=== PATIENT | male | born 1960 | race Caucasian/White ===

== ENCOUNTER 2018-02-03 10:38 | Observation (INO) ==
--- NOTE | 2018-02-03 10:51 | Emergency Department Note ---
Disposition Clinical Impression: Chest pain Disposition: Admitted As Inpatient Condition: Good Referrals: Andria Britton, ELECTRONICS TECHNICIAN APPRENTICE [Primary Care Provider] - Time of Disposition: 13:01 General Adult HPI - General Stated complaint: cp, headache, dizzy Time Seen by Provider: 02/03/18 10:51 Source: patient Mode of arrival: private vehicle Limitations: no limitations Nursing Notes Reviewed: Yes Vital Signs Reviewed: Yes - History of Present Illness HPI Narrative: 57-year-old white male presents emergency department via private vehicle complaining of chest pain. He says for the last couple of weeks he has had episodes of chest pain and nausea, but they just went away. He says that over the weekend he "mowed a lot." He says he woke up this morning and had a heavy, squeezing pressure in his chest. He says he continues to have 6 out of 10 pain. He feels nauseous and generally just does not feel well. He says that he feels dizzy like he would pass out while standing. He says that he is more short of breath than usual. He has a history of coronary artery disease and had open heart surgery with bypass 8-10 years ago. He has not had a heart catheterization since then. He says that he sees Dr. Cardona the vice president of development every 6 months. He has had no medicines prior to his arrival. - Related Data Home Medications Medication Instructions Recorded Confirmed metFORMIN [Glucophage] 500 mg PO BID 01/04/15 02/03/18 Citalopram [CeleXA] 20 mg PO DAILY 04/22/15 02/03/18 Lisinopril [Zestril] 10 mg PO DAILY 06/24/17 02/03/18 Pravastatin Sodium [Pravachol] 80 mg PO DAILY 06/24/17 02/03/18 Insulin Human Regular [HumuLIN R] 0 unit SQ TID 02/03/18 02/03/18 Linagliptin [Tradjenta] 5 mg PO DAILY 02/03/18 02/03/18 Naproxen [Naprosyn] 500 mg PO BID 02/03/18 02/03/18 Tamsulosin HCl [Flomax] 0.4 mg PO DAILY 02/03/18 02/03/18 Previous Rx's Medication Instructions Recorded Meclizine [Antivert] 25 mg PO TID PRN #18 tablet 06/24/17 Allergies Allergy/AdvReac Type Severity Reaction Status Date / Time No Known Allergies Allergy Verified 02/03/18 10:55 All systems ED: reviewed and negative except as stated. Constitutional: Denies: fever, chills, weakness, weight change Eyes: Denies: eye pain, eye discharge, vision change ENT ED: Denies: ear pain, throat pain, dental pain, hearing loss, epistaxis, congestion, dysphagia Cardiovascular: Reports: as per HPI, chest pain, dyspnea on exertion. Denies: palpitations, syncope Respiratory: Reports: as per HPI, dyspnea. Denies: cough, wheezes Gastrointestinal: Reports: as per HPI, nausea Genitourinary: Denies: urgency, dysuria, frequency, hematuria Musculoskeletal: Denies: back pain, neck pain, arthralgia, myalgia Integumentary: Denies: rash, abrasion, lesions Neurological: Reports: other (Dizziness). Denies: headache, weakness, numbness , paresthesias, confusion, abnormal gait, vertigo Psychiatric: Denies: anxiety, depression, suicidal thoughts, homicidal thoughts , auditory hallucinations, visual hallucinations Endocrine: Denies: fatigue Hematological/Lymphatic: Denies: easy bleeding, easy bruising Allergic/Immunologic: Denies: facial swelling, urticaria Past Medical History - Past Medical History Medical history: Reports: coronary artery disease, diabetes, hyperlipidemia, hypertension Surgical history: Reports: coronary bypass (CABG), orthopedic, other Psychiatric history: Reports: anxiety - Social History Smoking Status: Never smoker Smokeless Tobacco Status: No Alcohol use: Reports: none Drug use: Reports: none Physical Exam - General Limitations: no limitations General appearance: alert, in no apparent distress, other (Uncomfortable) - Head Head exam: atraumatic, normocephalic, normal inspection - Eye Eye exam: Present: normal appearance, PERRL, EOMI - ENT ENT exam: normal exam, normal oropharynx, mucous membranes moist - Neck Neck exam: Present: normal inspection, full ROM, trachea midline - Chest Chest inspection: Present: normal inspection, symmetric chest wall rise - Respiratory Respiratory exam: Present: normal lung sounds bilaterally. Absent: respiratory distress - Cardiovascular Cardiovascular exam: Present: regular rate, normal rhythm, normal heart sounds - Abdominal Exam Abdominal exam: Present: soft, Non-Tender. Absent: tenderness, distention, guarding, rebound, rigidity, organomegaly, mass, pulsatile mass - Extremities Exam Extremities exam: Present: normal inspection, full ROM. Absent: tenderness, pedal edema - Back Exam Back exam: Present: normal inspection, full ROM. Absent: tenderness - Neurological Exam Neurological exam: Present: alert, oriented X3, CN II-XII intact. Absent: motor sensory deficit - Psychiatric Psychiatric exam: Present: normal affect, normal mood - Skin Skin exam: Present: warm, dry, intact, normal color Course Course Narrative: The patient remained stable throughout his emergency department stay. Following his medications patient is pain-free at the time of disposition. Spoke with Dr. Bruce at 12:30 PM and the patient will be observed here in [place] overnight with orders requested by Dr. Bruce including: Daily aspirin, Lovenox, serial troponins, CBC, and CMP. Spoke with bed management at [facility] at 12:35 PM Vital Signs Temperature 98.6 F 02/03/18 10:46 Pulse Rate 70 02/03/18 10:46 Respiratory Rate 16 02/03/18 10:46 Blood Pressure 135/79 02/03/18 10:46 O2 Sat by Pulse Oximetry 97 02/03/18 10:46 Temperature 98.6 F 02/03/18 10:46 Pulse Rate 57 02/03/18 12:33 Respiratory Rate 16 02/03/18 12:33 Blood Pressure 113/77 02/03/18 12:33 O2 Sat by Pulse Oximetry 97 02/03/18 12:33 Oxygen Delivery Oxygen Delivery Room Air Medical Decision Making - Lab Data Lab results reviewed: Yes I reviewed the patient's lab results. Result diagrams: 02/03/18 11:20 02/03/18 11:20 Lab Results 02/03/18 02/03/18 02/03/18 Range/Units 11:20 11:20 11:20 WBC 8.3 (4.3-11.1) K/mcL RBC 4.62 (4.19-5.50) M/mcL Hgb 15.0 (12.9-16.9) g/dL Hct 42.5 (37.5-50.1) % MCV 92.0 (83.0-100.0) fL MCH 32.5 (28.0-33.3) pg MCHC 35.3 (31.6-35.5) g/dL RDW 12.8 (11.5-14.5) % Plt Count 165 (140-400) K/mcL MPV 10.7 (9.4-12.4) fL Immature Gran % 0.5 (0-4) % Seg Neutrophils % 67.8 % Lymphocytes % 23.5 % Monocytes % 5.5 % Eosinophils % 2.3 % Basophils % 0.4 % Neutrophils # 5.6 (1.6-8.9) K/mcL Lymphocytes # 2.0 (0.6-4.6) K/mcL Monocytes # 0.5 (0.0-1.3) K/mcL Eosinophils # 0.2 (0.0-0.6) K/mcL Basophils # 0.0 (0.0-0.2) K/mcL PT 11.3 (9.4-12.1) Seconds INR 1.0 Sodium 134 L (136-145) mEq/L Potassium 4.0 (3.5-5.1) mEq/L Chloride 102 (98-107) mEq/L Carbon Dioxide 24 (23-29) mEq/L BUN 18 (6-20) mg/dL Creatinine 0.72 (0.70-1.30) mg/dL Est GFR ( Amer) > 60 (> 60) Est GFR (Non-Af Amer) > 60 (> 60) BUN/Creatinine Ratio 25 (6-26) Glucose 202 H (70-105) mg/dL Calculated Osmolality 286 (280-300) Lactic Acid (0.5-2.2) mmol/L Calcium 9.5 (8.6-10.3) mg/dL Total Bilirubin 1.0 (0.3-1.0) mg/dL AST 13 (13-39) Units/L ALT 19 (7-52) Units/L Alkaline Phosphatase 58 (34-104) Units/L Troponin I < 0.03 (< 0.04) ng/mL B-Natriuretic Peptide (Less than 100) pg/mL Serum Total Protein 6.4 (6.4-8.9) g/dL Albumin 3.9 (3.5-5.7) g/dL Globulin 2.5 (2.4-3.5) g/dL Albumin/Globulin Ratio 1.6 (1.1-2.2) 09/04/18 09/04/18 Range/Units 11:20 11:20 WBC (4.3-11.1) K/mcL RBC (4.19-5.50) M/mcL Hgb (12.9-16.9) g/dL Hct (37.5-50.1) % MCV (83.0-100.0) fL MCH (28.0-33.3) pg MCHC (31.6-35.5) g/dL RDW (11.5-14.5) % Plt Count (140-400) K/mcL MPV (9.4-12.4) fL Immature Gran % (0-4) % Seg Neutrophils % % Lymphocytes % % Monocytes % % Eosinophils % % Basophils % % Neutrophils # (1.6-8.9) K/mcL Lymphocytes # (0.6-4.6) K/mcL Monocytes # (0.0-1.3) K/mcL Eosinophils # (0.0-0.6) K/mcL Basophils # (0.0-0.2) K/mcL PT (9.4-12.1) Seconds INR Sodium (136-145) mEq/L Potassium (3.5-5.1) mEq/L Chloride (98-107) mEq/L Carbon Dioxide (23-29) mEq/L BUN (6-20) mg/dL Creatinine (0.70-1.30) mg/dL Est GFR ( Amer) (> 60) Est GFR (Non-Af Amer) (> 60) BUN/Creatinine Ratio (6-26) Glucose (70-105) mg/dL Calculated Osmolality (280-300) Lactic Acid 1.1 (0.5-2.2) mmol/L Calcium (8.6-10.3) mg/dL Total Bilirubin (0.3-1.0) mg/dL AST (13-39) Units/L ALT (7-52) Units/L Alkaline Phosphatase (34-104) Units/L Troponin I (< 0.04) ng/mL B-Natriuretic Peptide 58 (Less than 100) pg/mL Serum Total Protein (6.4-8.9) g/dL Albumin (3.5-5.7) g/dL Globulin (2.4-3.5) g/dL Albumin/Globulin Ratio (1.1-2.2) - Radiology Data Radiology results reviewed: Yes I reviewed the patient's radiology results. Chest x-ray one view: IMPRESSION: No acute process. D/ / 02/03/2018 11:24:24 Shaun Talley MD / yaw - EKG Data EKG #1 EKG attestation: Yes I reviewed and interpreted this EKG. EKG results narrative: Twelve-lead EKG showed normal sinus rhythm. Rate 76. Normal axis. No acute ST elevation or depression appreciated.
[2018-02-03] MEDS ORDERED: Nitroglycerin 1 INCH/GM PACKET TP ONE (10:56)
[2018-02-03] MEDS ORDERED: Ondansetron 4 MG/2 ML VIAL IVP ONE (10:56)
[2018-02-03] MEDS ORDERED: Aspirin 81 MG TAB.CHEW PO STA (10:56)
[2018-02-03] MEDS ORDERED: *HR* Morphine 2 MG/ML SYRINGE IVP ONE (10:56)
[2018-02-03] MEDS ORDERED: 0.9 % Sodium Chloride 500 ML IVC ONE (11:01)
[2018-02-03 11:37] LABS: Prothrombin Time 11.3 Seconds (9.4-12.1)
[2018-02-03 11:43] LABS: Alanine Aminotransferase 19 Units/L (7-52); Albumin 3.9 g/dL (3.5-5.7); Albumin/Globulin Ratio 1.6 (1.1-2.2); Alkaline Phosphatase 58 Units/L (34-104); Aspartate Amino Transferase 13 Units/L (13-39); BUN/Creatinine Ratio 25 (6-26); Blood Urea Nitrogen 18 mg/dL (6-20); Calcium 9.5 mg/dL (8.6-10.3); Carbon Dioxide 24 mEq/L (23-29); Chloride 102 mEq/L (98-107); Globulin 2.5 g/dL (2.4-3.5); Glucose 202 mg/dL (70-105); Osmolality,Calculated 286 (280-300); Sodium 134 mEq/L (136-145); Total Protein 6.4 g/dL (6.4-8.9); eGFR For Non-African Americans > 60 (> 60)
[2018-02-03 11:46] LABS: Troponin I < 0.03 ng/mL (< 0.04)
[2018-02-03 11:54] LABS: Basophils % 0.4 %; Eosinophils # 0.2 K/mcL (0.0-0.6); Eosinophils % 2.3 %; Hematocrit 42.5 % (37.5-50.1); Immature Granulocytes % 0.5 % (0-4); Lymphocytes % 23.5 %; Mean Corpuscular HGB Conc 35.3 g/dL (31.6-35.5); Mean Corpuscular Hemoglobin 32.5 pg (28.0-33.3); Mean Platelet Volume 10.7 fL (9.4-12.4); Monocytes # 0.5 K/mcL (0.0-1.3); Monocytes % 5.5 %; Neutrophils # 5.6 K/mcL (1.6-8.9); Platelet Count 165 K/mcL (140-400); Red Blood Count 4.62 M/mcL (4.19-5.50); Red Cell Distribution Width 12.8 % (11.5-14.5); Segmented Neutrophils % 67.8 %
[2018-02-03] MEDS ORDERED: Enoxaparin Weight Dosing SQ SCH (13:32)
[2018-02-03] MEDS ORDERED: Naloxone 0.4 MG/ML INJ IVP PRN (13:32)
[2018-02-03] MEDS ORDERED: *HR* Dextrose 50 % in Water (Syg) 50 ML SYRINGE IVP PRN (13:37)
[2018-02-03] MEDS ORDERED: Dextrose Gel 15 GM/37.5 ML TUBE PO PRN ×2 (13:37)
[2018-02-03] MEDS ORDERED: D5% in Water 1,000 ML IVC PRN (13:37)
[2018-02-03] MEDS ORDERED: traMADol 50 MG TABLET PO PRN (15:32)
--- NOTE | 2018-02-03 15:32 | Internal Med History&Physical ---
Date of Encounter: 02/03/18 Time of Encounter: 15:30 Assessment and Plan (1) Chest pain Current visit: Yes Status: Acute He is able to get an inpatient stress test here tomorrow at 11:30. We will check troponins. He is currently on Nitropaste we will discontinue that and see what is chest pain does. He is not on a beta stewart but will not add that due to the fact he is having a stress test tomorrow. We will not give him Lovenox due to the fact that he had the rectal bleeding last week. Qualifiers: Chest pain type: chest pain due to myocardial ischemia Ischemic chest pain type: unstable angina pectoris Qualified Code(s): I20.0 - Unstable angina (2) Unstable angina Current visit: Yes Status: Acute (3) Rectal bleeding Current visit: Yes Status: Acute If no further rectal bleeding we will get him an outpatient consult for colonoscopy. (4) CAD (coronary artery disease), [place] coronary artery Current visit: Yes Status: Acute Qualifiers: [place] vs. transplanted heart: [place] heart Associated angina: with unstable angina Qualified Code(s): I25.110 - Atherosclerotic heart disease of [place] coronary artery with unstable angina pectoris (5) DM2 (diabetes mellitus, type 2) Current visit: Yes Status: Acute He is very unclear about his medications. He says he takes metformin but it has not been filled a right internal while we will hold metformin given the fact that he has the unstable angina in case he needs to have a cardiac catheterization. He is unclear about his dose of basaglar he says 30 pharmacy says 65. Will continue 30 with a sliding scale insulin for coverage. Qualifiers: Diabetes mellitus results technician insulin use: with results technician use Diabetes mellitus complication status: without complication Qualified Code(s): E11.9 - Type 2 diabetes mellitus without complications; Z79.4 - green chainer (current) use of insulin (6) Essential (primary) hypertension Current visit: Yes Status: Acute Will continue his home Diovan. (7) BPH (benign prostatic hyperplasia) Current visit: Yes Status: Acute Qualifiers: Lower urinary tract symptom presence: symptoms absent Qualified Code(s): N40.0 - Benign prostatic hyperplasia without lower urinary tract symptoms (8) TUNG (obstructive sleep apnea) Current visit: Yes Status: Acute He is not compliant with wearing his CPAP. Internal Medicine - H&P: HPI Chief complaint: chest pain, felt like when i had my heart surgery Admitted From: Home Plans for Post Hospital Care: Home History of present illness: Mr. Coronado is a 57 year old male With a past medical history of coronary artery disease status post CABG type 2 diabetes hypertension hyperlipidemia former smoker. He woke up this morning with substernal chest pain that radiated up to his jaw and radiated to his left arm felt like someone was standing on his chest he was short of breath he could not breathe he was diaphoretic he came into the emergency room the chest pain was relieved with aspirin morphine and Nitropaste. He states this feels just like it did when he was taken to the Security Systems Technician and had to have bypass surgery immediately afterwards. She states that for the past 3 weeks he has been having more frequent chest pain when he exerts himself to have chest pain he gets more short of breath. He gets diaphoretic with it it always goes up to his jaw and occasionally will go up to his arm. It is alleviated with resting. But today did not get alleviated until he had the nitroglycerin morphine and aspirin here in the emergency room. He was worried about this chest pain and did not tell anybody about it because he knew he would end up with a catheterization again he also states that he had some bright red blood per rectum last week it has not happened since but he did not tell anybody else about that either because he was worried that he did have some done about it. Sugars have been running really high about 584 at home. He did go well to see the nurse practitioner in urgent care who did not listen to his lungs but gave him amoxicillin along with prednisone for a wound infection. He does have a cough but that has gotten better. Past Med Surg Social Fam HX - Past Medical History Medical history: coronary artery disease, diabetes, hyperlipidemia, hypertension , other (Obesity, bph, abnormal chest ct, hyponatremia, spinal stenosis of the lumbar region, arthritis, obstructive sleep apnea but he does not wear CPAP) Additional medical history: POSSIBLE CANCER LEFT LUNG Psychiatric history: anxiety - Past Surgical History Surgical History: coronary bypass (CABG) (2006, he was taken straight from the Security Systems Technician into CABG.), orthopedic, other (Bilateral carpal tunnel, right total shoulder replacements 04/06/2015, left shoulder scope), other (Bronchoscopy September [address]) Additional surgical history: right shoulder replacement - Social History Smoking Status: Former smoker Smokeless Tobacco Status: No Alcohol use: none Drug use: none - Family History Father Family Member Ethnicity: Non- Living Status: Age at : 69 Cause of : heart attack Hx Family Cardiac Disorders: Yes Hx Family Endocrine Disorder: Yes (Type 2 diabetes) Mother Living Status: Hx Family Neurologic Disorders: Yes (Brain aneurysm) Internal Medicine - H&P: Meds metFORMIN [Glucophage] 500 mg PO BID 01/04/15 [History] Budesonide/Formoterol 160/4.5 [Symbicort 160/4.5] 2 puff IH BIDR 02/03/18 [ History] Citalopram Hydrobromide [Citalopram HBr] 20 mg PO DAILY 02/03/18 [History] Ezetimibe [Zetia] 10 mg PO DAILY 02/03/18 [History] Insulin Glargine,Hum.rec.anlog [Basaglar Kwikpen U-100] 65 unit SQ DAILY [History] Insulin Human Regular [HumuLIN R] 0 unit SQ TID 02/03/18 [History] Linagliptin [Tradjenta] 5 mg PO DAILY 02/03/18 [History] Naproxen [Naprosyn] 500 mg PO BID 02/03/18 [History] Pravastatin Sodium [Pravachol] 80 mg PO HS 02/03/18 [History] Tamsulosin HCl [Flomax] 0.4 mg PO DAILY 02/03/18 [History] Tramadol HCl [Ultram] 50 mg PO QID PRN 02/03/18 [History] Valsartan [Diovan] 80 mg PO DAILY 02/03/18 [History] 3 Allergy/AdvReac Type Severity Reaction Status Date / Time No Known Allergies Allergy Verified 02/03/18 10:55 All Systems PM: A 10-system review of systems was performed and is negative for pertinent findings except as documented above in the HPI. - Constitutional Constitutional: fatigue, falls, no chills - EENT Eyes: no change in vision Nose, mouth and throat: nasal congestion, sore throat (But improved) - Cardiovascular Cardiovascular ROS IM: chest pain, dyspnea, dyspnea on exertion, edema, lightheadedness, no palpitations, no syncope - Respiratory Respiratory: cough, dyspnea, no hemoptysis, no wheezing - Gastrointestinal Gastrointestinal: hematochezia, no abdominal pain, no coffee ground emesis, no constipation, no diarrhea, no hematemesis, no melena, no nausea, no vomiting - Genitourinary Genitourinary ROS male: urinary frequency (When sugars run high), no dysuria, no hematuria - Musculoskeletal Musculoskeletal ROS IM: back pain (Chronic for him), numbness (Of his legs chronic for him) - Integumentary Integumentary IM: no erythema, no pruritus, no rash - Constitutional Vitals: Temp Pulse Resp BP Pulse Ox 97.9 F 57 16 120/77 94 02/03/18 14:30 02/03/18 14:30 02/03/18 14:30 02/03/18 14:30 02/03/18 14:30 General appearance: Present: A&O X 3, obese. Absent: no acute distress - Head Head exam: Present: atraumatic, normocephalic - Neck Neck exam general surgery: Present: supple, trachea midline. Absent: lymphadenopathy, tenderness - Respiratory Respiratory exam: Present: CTAB - Cardiovascular Cardiovascular exam: Present: +S1, +S2. Absent: RRR, systolic murmur - GI/Abdominal GI/Abdominal exam: Present: normal bowel sounds, soft, no peritoneal signs. Absent: distended, guarding, tenderness - Extremities Exam Extremities exam: Present: pedal edema (Trace) - Skin Skin exam: Present: dry, warm. Absent: rash Internal Med - H&P Results - Labs CBC & Chem 7: 02/03/18 11:20 02/03/18 11:20
[2018-02-03] MEDS: Insulin LISPRO 300 UNITS/3 ML VIAL SQ SCH (16:49)
[2018-02-03] MEDS ORDERED: *HR* Metformin 500 MG TABLET PO SCH (17:00)
[2018-02-03] MEDS: Budesonide/Formoterol 160/4.5 1 PUFF INH IH SCH (20:14)
[2018-02-03] MEDS ORDERED: Insulin DETEMIR 100 UNIT/ML per UNIT SQ ONE (21:00)
[2018-02-03] MEDS ORDERED: NON-FORMULARY MEDICATION 1 EACH EACH (Pravastatin Sodium [Pravachol] 80 MG) PO SCH (21:00)
[2018-02-04 07:25] LABS: Basophils % 0.6 %; Eosinophils # 0.2 K/mcL (0.0-0.6); Eosinophils % 3.3 %; Hematocrit 42.7 % (37.5-50.1); Immature Granulocytes % 0.6 % (0-4); Lymphocytes # 1.7 K/mcL (0.6-4.6); Lymphocytes % 26.3 %; Mean Corpuscular HGB Conc 35.1 g/dL (31.6-35.5); Mean Corpuscular Hemoglobin 32.5 pg (28.0-33.3); Mean Corpuscular Volume 92.4 fL (83.0-100.0); Monocytes # 0.5 K/mcL (0.0-1.3); Monocytes % 6.8 %; Neutrophils # 4.1 K/mcL (1.6-8.9); Platelet Count 152 K/mcL (140-400); Red Blood Count 4.62 M/mcL (4.19-5.50); Red Cell Distribution Width 12.6 % (11.5-14.5); Segmented Neutrophils % 62.4 %
[2018-02-04 07:31] LABS: Alanine Aminotransferase 17 Units/L (7-52); Albumin 3.6 g/dL (3.5-5.7); Albumin/Globulin Ratio 1.6 (1.1-2.2); Alkaline Phosphatase 53 Units/L (34-104); Aspartate Amino Transferase 13 Units/L (13-39); BUN/Creatinine Ratio 22 (6-26); Bilirubin,Total 0.6 mg/dL (0.3-1.0); Blood Urea Nitrogen 14 mg/dL (6-20); Calcium 9.1 mg/dL (8.6-10.3); Carbon Dioxide 24 mEq/L (23-29); Chloride 104 mEq/L (98-107); Globulin 2.2 g/dL (2.4-3.5); Glucose 199 mg/dL (70-105); Osmolality,Calculated 284 (280-300); Potassium 4.2 mEq/L (3.5-5.1); Sodium 134 mEq/L (136-145); Total Protein 5.8 g/dL (6.4-8.9); eGFR For Non-African Americans > 60 (> 60)
[2018-02-04] MEDS ORDERED: (Ezetimibe [Zetia] 10 MG) PO SCH (09:00)
[2018-02-04] MEDS ORDERED: (Linagliptin [Tradjenta] 5 MG) PO SCH (09:00)
[2018-02-04] MEDS ORDERED: Aspirin 81 MG TAB.CHEW PO SCH (09:00)
[2018-02-04] MEDS ORDERED: Valsartan 80 MG TABLET PO SCH (09:00)
[2018-02-04] MEDS ORDERED: Regadenoson 0.4 MG/5 ML SYRINGE IVP ONE ×2 (09:31→09:36)
[2018-02-04 11:34] VITALS: BP 116/66
--- NOTE | 2018-02-04 11:47 | Discharge Summary ---
- NOTES TO OUTPATIENT PROVIDER Notes to Outpatient Provider: will need to see cardio Cardona for chest pain and will need GI follow up for the rectal bleeding Orders not resulted at time of discharge: Pending orders 02/04/18 08:15 NM jigar perf SPECT multi [NM] Routine Date of Encounter: 02/04/18 Time of Encounter: 08:00 - Discharge Diagnosis (1) Chest pain Priority: Primary Status: Acute Comments: Samanta for chest pain unstable angina. He had a stress test this morning which was negative he will be discharged home his troponins were negative 3 baby aspirin was started he will follow-up as an outpatient with cardiology for further workup he was discharged home in stable condition Qualifiers: Chest pain type: chest pain due to myocardial ischemia Ischemic chest pain type: unstable angina pectoris Qualified Code(s): I20.0 - Unstable angina (2) Unstable angina Priority: Secondary Status: Acute Comments: Stress Test this morning was negative for ischemia (3) Rectal bleeding Priority: Secondary Status: Acute Comments: His hemoglobin remained stable we will set him up for an outpatient GI consult. (4) CAD (coronary artery disease), [place] coronary artery Priority: Secondary Status: Acute Qualifiers: [place] vs. transplanted heart: [place] heart Associated angina: with unstable angina Qualified Code(s): I25.110 - Atherosclerotic heart disease of [place] coronary artery with unstable angina pectoris (5) DM2 (diabetes mellitus, type 2) Priority: Secondary Status: Acute Comments: There is some confusion about his medication his metformin was held and cases stress test turned out to be abnormal. His sugars were not as bad here as they were at home he is not most compliant with taking his insulin. Qualifiers: Diabetes mellitus roasterman insulin use: with roasterman use Diabetes mellitus complication status: without complication Qualified Code(s): E11.9 - Type 2 diabetes mellitus without complications; Z79.4 - senior living (current) use of insulin (6) Essential (primary) hypertension Priority: Secondary Status: Acute Comments: His blood pressure remained stable on his home medication will continue those as an outpatient (7) BPH (benign prostatic hyperplasia) Priority: Secondary Status: Acute Comments: Not have any urinary symptoms while here on his Flomax Qualifiers: Lower urinary tract symptom presence: symptoms absent Qualified Code(s): N40.0 - Benign prostatic hyperplasia without lower urinary tract symptoms (8) TUNG (obstructive sleep apnea) Priority: Secondary Status: Acute Comments: He does not wear a CPAP machine. Hospital course: Mr. Coronado is a 57 year old male With past medical history of coronary artery disease hypertension diabetes smoker in the past. He presented to the emergency room with substernal chest pain that radiated to his neck and left arm. It did make him short of breath. It felt like a person standing on his chest. He had troponins that were negative 3 had a normal EKG. He did undergo a nuclear stress test that did not show any evidence of ischemia. He was discharged home for outpatient follow -up with the small arms artillery repairer Dr. Cardona he started been established there. He also had some rectal bleeding a week prior to admission his hemoglobin remained stable. He will see gastroenterology as an outpatient. - Time Spent with Patient Total time spent providing and/or coordinating discharge services: - Discharge Medications Home Medications: metFORMIN [Glucophage] 500 mg PO BID 01/04/15 [History] Budesonide/Formoterol 160/4.5 [Symbicort 160/4.5] 2 puff IH BIDR 02/03/18 [ History] Citalopram Hydrobromide [Citalopram HBr] 20 mg PO DAILY 02/03/18 [History] Ezetimibe [Zetia] 10 mg PO DAILY 02/03/18 [History] Linagliptin [Tradjenta] 5 mg PO DAILY 02/03/18 [History] Naproxen [Naprosyn] 500 mg PO BID 02/03/18 [History] Pravastatin Sodium [Pravachol] 80 mg PO HS 02/03/18 [History] Tamsulosin HCl [Flomax] 0.4 mg PO DAILY 02/03/18 [History] Tramadol HCl [Ultram] 50 mg PO QID PRN 02/03/18 [History] Valsartan [Diovan] 80 mg PO DAILY 02/03/18 [History] Aspirin 81 mg PO DAILY tab.chew 02/04/18 [Rx] Citalopram [CeleXA] 20 mg PO DAILY tablet 02/04/18 [Rx] Insulin Glargine,Hum.rec.anlog [Basaglar Kwikpen U-100] 30 unit SQ DAILY #0 10/17 [Rx] Allergies/Adverse Reactions: 3 Allergy/AdvReac Type Severity Reaction Status Date / Time No Known Allergies Allergy Verified 02/03/18 10:55 Date of admission: 02/03/18 13:25 Primary care physician: Andria Britton CNP - Constitutional Vitals: Temp Pulse Resp BP Pulse Ox 98.1 F 66 18 116/66 95 02/04/18 11:33 02/04/18 11:33 02/04/18 11:33 02/04/18 11:33 02/04/18 11:33 General appearance: Present: A&O X 3, obese. Absent: no acute distress - Head Head exam: Present: atraumatic, normocephalic - Neck Neck exam general surgery: Present: supple, trachea midline. Absent: lymphadenopathy, tenderness - Respiratory Respiratory exam: Present: CTAB - Cardiovascular Cardiovascular exam: Present: RRR, +S1, +S2. Absent: systolic murmur - GI/Abdominal GI/Abdominal exam: Present: normal bowel sounds, soft, no peritoneal signs. Absent: distended, guarding, mass, tenderness - Extremities Exam Extremities exam: Present: normal capillary refill, warm. Absent: mottling, pedal edema - Skin Skin exam: Present: dry, warm. Absent: rash - Patient Status Disposition: Home, Self-Care Condition: Good Overall status at discharge: patient is progressing back to baseline - Discharge Instructions Instructions: Chest Pain (DC), Diabetes Mellitus Type 2 in Adults (DC), Chronic Hypertension (DC) Follow Up With: Andria Britton CNP [Primary Care Provider] - 02/10/18 1:40 pm Forms: ED Satisfaction Letter Additional Instructions: You will need to follow up with your small arms artillery repairer, Dr. Cardona for the chest pain and you will need to see GI for the rectal bleeding - Diet and Activity Activity: increase activity as tolerated Diet: diabetic diet, low fat, low cholesterol, low salt diet
[2018-02-04] MEDS: Insulin LISPRO 300 UNITS/3 ML VIAL SQ SCH ×2 (12:08→12:09)
[2018-02-04] MEDS: Budesonide/Formoterol 160/4.5 1 PUFF INH IH SCH (12:08)
[2018-02-04] MEDS ORDERED: Insulin DETEMIR 100 UNIT/ML X5UNITS SQ SCH (21:00)
--- NOTE | 2018-02-07 12:28 | Electrocardiograph Report ---
[place] [id number] Test Date: 2018-02-03 Pat Name: Phi Coronado Department: 2000 Room: 119 Gender: Head Of Business Development: : 1960 Requested By: Wei Noriega Order Number: [id number] Reading MD: Wie Early Measurements Intervals [place] Rate: 76 P: 30 WV: 144 QRS: 32 QRSD: 96 T: 34 QT: 357 QTc: 387 Interpretive Statements SINUS RHYTHM T-WAVE ABNORMALITY, CONSIDER ANTERIOR ISCEHMIA Electronically Signed On 02-07-2018 12:26:10 EDT by Wei Early
== END 2018-02-04 11:45 | disposition home or self-care (01) ==
LOC: EMEROOGRE 10:38 → INPGRE 10:38
PROVIDERS: ADMIT Family Medicine; ATTEND Family Medicine